=== PATIENT | male | born 1990 | race African-American/Black ===

== ENCOUNTER 2019-11-18 00:03 | Outpatient (CLI) | payer OTHER, SELFPAY ==
[2019-11-18 20:58] LABS: SARS-CoV-2 RNA PCR Negative
== END 2019-11-18 00:04 | disposition home or self-care (01) ==
LOC: ANHCOVIDDT 00:03
PROVIDERS: PCP Nurse Practitioner Adult Health; Visit Provider Internal Medicine Gastroenterology
DX: Z01.812 Encounter for preprocedural laboratory examination (principal); Z11.59 Encounter for screening for other viral diseases
CPT/HCPCS: 87635; C9803; U0003

== ENCOUNTER 2019-11-21 01:24 | Day surgery (SDC) | payer OTHER, SELFPAY ==
[2019-11-17 14:41] VITALS: BMI 34.4
--- NOTE | 2019-11-21 08:10 | P.PNAN_ITS ---
Anes - Initial Pre Proc Eval Procedure: Operation Date: 11/21/19 09:00 Proposed Procedures p Esophagogastroduodenoscopy - Milton Joshua MD Date/Time: 11/21/19 08:10 Surgeon: Milton Joshua MD Pre Op Diagnosis: Reflux Patient Data Age: 29 Gender: M Height: 1.91 m Weight: 125 kg Allergies Allergy/AdvReac Type Severity Reaction Status Date / Time No Known Allergies Allergy Verified 11/17/19 14:40 Home Medications Medication Instructions Recorded Confirmed Type omeprazole 40 mg PO DAILY 11/17/19 11/17/19 History Patient hx anesthesia problems: none Family hx anesthesia problems: none [facility] Past Medical History Medical History (Updated 11/21/19 @ 08:12 by Bebeto Mccarty MD) Gastroesophageal reflux disease Obesity Anes - Eval Final PreProcedure Day of Procedure 11/21/19 08:10 Patient weight: obese Heart: regular rate and rhythm Lungs: clear to auscultation and normal air movement Airway: Mallampati scale class II Neurological: alert and oriented Last oral intake: >/= 8 hours ASA classification: II Emergent: no Anesthetic plan: proceed Anesthesia type and monitoring: general GIVS Informed Consent: The patient's anesthetic plan and its attendant risks and benefits were discussed with the patient/family/POA. Questions were solicited and answers provided to the satisfaction of the patient/family/POA.
[2019-11-21 08:12] VITALS: BMI 34.4
[2019-11-21 08:13] VITALS: BP 145/94; PULSE 86; RESP 20; TEMP 36.9; O2SAT 100
[2019-11-21] MEDS: LACTATED RINGERS 1,000 ML 150 ML IV CONT (08:29)
--- NOTE | 2019-11-21 09:00 | P.HP_ITS ---
History of Present Illness History of Present Illness Consent: Risks, benefits, and alternatives have been discussed and questions answered. Patient agrees to proceed with procedure. Chief complaint: Reflux Narrative: Nikita Gtz is a 29 year old AA male Referred for EGD for evaluation of chronic gastroesophageal reflux disease with intermittent nausea occasional episode of vomiting. He denies any dysphagia odynophagia. He had been on Aleve on a regular basis this was stopped back in June. He did not schedule since this time because of COVID. Patient was given what I suspect is a PPI this was stopped in the symptoms reoccurred. He is on no medication at the present time COUNT INCLUDES THE [facility] Past Medical History Medical History Gastroesophageal reflux disease Obesity Meds Home Medications and Allergies Home Medications Medication Instructions Recorded Confirmed Type omeprazole 40 mg PO DAILY 11/17/19 11/17/19 History Allergies Allergy/AdvReac Type Severity Reaction Status Date / Time No Known Allergies Allergy Verified 11/17/19 14:40 Vital Signs Vital Signs - 24 hr 11/21/19 08:13 Temperature 36.9 C Pulse Rate 86 Respiratory Rate 20 Blood Pressure 145/94 H Pulse Oximetry 100 Exam Const: Orientation/consciousness: patient oriented x3 Resp: Auscultation: clear to auscultation bilaterally Cardio: Rate: regular rate Rhythm: regular rhythm Heart sounds: no murmurs GI: GI Palp: Yes Soft to palpation, No Tenderness to palpation present (GI), Yes No hepatosplenomegaly present and No Palpable mass present Auscultation: normal bowel sounds Neuro: General: patient oriented x3 and no focal motor deficits Extrem: General: no pedal edema Assessment and Plan Additional Plan gastroscopy for evaluation recurrent gastroesophageal reflux disease nausea occasional vomiting
[2019-11-21 09:48] VITALS: BP 122/77; PULSE 86; RESP 20; O2SAT 98
[2019-11-21 09:58] VITALS: BP 127/82; PULSE 81; RESP 20; O2SAT 98
[2019-11-21 10:01] LABS: Basophils Percent Auto 0.7 % (0.2-1.2); Eosinophils Percent Auto 0.7 % (0-4.4); Hematocrit 42.2 % (42.0-52.0); Hemoglobin 13.9 g/dL (14.0-18.0); Immature Granulocyte Absolute 0.01 K/mm3 (0.00-0.031); Immature Granulocyte Percent A 0.2 % (0-0.5); Lymphocytes Absolute Auto 1.84 K/mm3 (0.9-3.2); Mean Corpuscular HGB Conc 32.9 g/dl (32-36); Mean Corpuscular Hemoglobin 28.1 pg (26-34); Mean Corpuscular Volume 85.3 fl (80-100); Mean Platelet Volume 11.1 fl (7.4-10.4); Monocytes Absolute Auto 0.3 K/mm3 (0.1-0.6); Monocytes Percent Auto 7.5 % (2.6-8.5); Neutrophils Absolute Auto 2.1 K/mm3 (1.3-6.7); Neutrophils Percent Auto 47.9 % (45.5-73.1); Platelet Count Result 228 k/mm3 (150-375); Red Blood Count 4.95 M/mm3 (4.6-6.20); Red Cell Distribution Width 12.9 % (11.5-14.5); White Blood Count 4.3 K/mm3 (4.5-10.0)
[2019-11-21 10:08] VITALS: BP 118/76; PULSE 73; RESP 20; O2SAT 100
[2019-11-21 10:17] LABS: Alanine Aminotransferase 73 U/L (4-50); Albumin Level 4.1 g/dL (3.5-5.1); Alkaline Phosphatase 66 U/L (38-126); Aspartate Amino Transferase 32 U/L (17-59); Bilirubin,Total 0.4 mg/dL (0.2-1.3); Blood Urea Nitrogen 9 mg/dL (9-20); Calcium 8.8 mg/dL (8.4-10.2); Carbon Dioxide 24 mmol/L (22-30); Chloride 107 mmol/L (98-107); Cholesterol 157 mg/dL (0-200); Estimated CRCL calculation 151 ml/min; Estimated Glomerular Filt Rate > 60; Glucose 99 mg/dL (75-110); HDL Direct 27 mg/dL; Potassium 3.8 mmol/L (3.4-5.0); Sodium 138 mmol/L (137-145); Triglycerides 130 mg/dL (<150)
[2019-11-21 10:29] LABS: LDL Cholesterol Direct 115 mg/dL
== END 2019-11-21 10:25 | disposition home or self-care (01) ==
PROVIDERS: PCP Nurse Practitioner Adult Health; Visit Provider Internal Medicine Gastroenterology
PROC: 0DJ08ZZ Inspection of Upper Intestinal Tract, Via Natural or Artificial Opening Endoscopic (ICD-10-PCS; CPT 43235; principal; 2019-11-21 09:00)
DX: K21.0 Gastro-esophageal reflux disease with esophagitis (principal); K44.9 Diaphragmatic hernia without obstruction or gangrene; K29.50 Unspecified chronic gastritis without bleeding; E66.9 Obesity, unspecified; Z68.34 Body mass index [BMI] 34.0-34.9, adult
CPT/HCPCS: 43239; 36415; 80053; 80061; 82607; 83036; 84443; 85025; 87081; 88305; 88312; J2001; J2704; J7120

== ENCOUNTER 2020-11-20 22:17 | Emergency (ER) | payer SELFPAY ==
--- NOTE | ~2020-11-20 | XR_ITS ---
EXAMINATION: XR chest 1V portable EXAM DATE: 11/20/2020 22:30 INDICATION: Chest pressure progressing since 3 o'clock. TECHNIQUE: Portable AP frontal chest x-ray was obtained. There is no prior study for comparison. FINDINGS: The lungs are clear. There are no pleural effusions. The cardiomediastinal silhouette is within normal limits. There is no pneumothorax suspected. The bones and soft tissues are unremarkab le. IMPRESSION: Unremarkable chest x-ray exam. Reviewed, dictated and finalized at location A.
[2020-11-20 22:09] VITALS: BP 153/91; PULSE 76; RESP 20; O2SAT 100
--- NOTE | 2020-11-20 22:11 | PC.NURSE ---
i had to cold call each dr to let them know we have a stemi coming in. Ever ant was not working correctly at the time. ever ant is now up and going.
--- NOTE | 2020-11-20 22:17 | ECG_ITS ---
Measurements Intervals [place] Rate: 80 P: 41 GA: 143 QRS: 66 QRSD: 95 T: -49 QT: 334 QTc: 386 Interpretive Statements SINUS RHYTHM POSSIBLE LEFT ATRIAL ENLARGEMENT ST-T WAVE ABNORMALITY IN INFERIOR LEADS- CONSIDER ISCHEMIA BASELINE ARTIFACT- V1, V4 ABNORMAL ECG Electronically Signed On 11-21-2020 6:13:25 CDT by Jerome Payton D.O.
--- NOTE | 2020-11-20 22:18 | PC.NURSE ---
stemi was cancelled per Dr. Moise
--- NOTE | 2020-11-20 22:22 | ED.CHESTPAIN ---
HPI - Chest Pain General Chief Complaint: Chest Pain Stated Complaint: CP Time Seen by Provider: 11/20/20 22:20 Source: patient Mode of arrival: ambulatory Limitations: no limitations History of Present Illness HPI narrative: Patient is a 30-year-old male complaining of chest pain midsternal, pressure, 8 out of 10, now resolved after he was given nitro by EMS, worse with movement, started today while at work. Patient denies any shortness of breath, abdominal pain, nausea, vomiting, diaphoresis, fever or chills. Related Data Home Medications Medication Instructions Recorded Confirmed omeprazole 40 mg PO DAILY 11/17/19 11/17/19 No Home Medications 11/20/20 11/20/20 Allergies Allergy/AdvReac Type Severity Reaction Status Date / Time No Known Allergies Allergy Unverified 11/20/20 22:15 Review of Systems Review of Systems: All systems reviewed & are unremarkable except as noted in HPI and below Constitutional: Constitutional: Denies body ache(s), Denies chills, Denies excessive sweating, Denies fatigue, Denies fever(s), Denies headache(s), Denies lethargy, Denies malaise, Denies weakness and Denies weight loss Eyes: Eyes: Denies blurry vision, Denies change in vision and Denies loss of vision ENT: Denies dizziness, Denies ear discharge, Denies headache(s), Denies lip swelling, Denies epistaxis, Denies nasal congestion, Denies neck pain, Denies throat swelling and Denies tongue swelling Cardiovascular: Cardiovascular: Denies diaphoresis, Denies rapid heart rate, Denies edema, Denies irregular heart rhythm, Denies lightheadedness, Denies palpitations, Denies dyspnea and Denies dyspnea on exertion Respiratory: Respiratory: Denies chest congestion, Denies cough, Denies hemoptysis, Denies dyspnea and Denies dyspnea on exertion Gastrointestinal: Gastrointestinal: Denies abdominal pain, Denies melena, Denies hematochezia, Denies diarrhea, Denies nausea, Denies vomiting and Denies hematemesis Musculoskeletal: Musculoskeletal: Denies abnormal gait, Denies deformity, Denies joint swelling, Denies limited range of motion, Denies neck pain and Denies numbness Neurologic: Denies Abnormal speech present, Denies abnormal gait, Denies confusion, Denies dizziness, Denies headache(s), Denies focal weakness, Denies loss of vision, Denies numbness, Denies Other visual disturbances, Denies Sensory deficit (Neuro) and Denies weakness Psychiatric: Psychiatric: Denies confusion, Denies depression, Denies auditory hallucinations, Denies homicidal ideation and Denies suicidal ideation Endocrine: Endocrine: Denies cold intolerance, Denies excessive sweating, Denies fatigue, Denies heat intolerance and Denies palpitations Hematologic/Lymphatic: Hematologic/Lymphatic: Denies easy bleeding and Denies easy bruising Allergic/Immunologic: Allergic/Immunologic: Denies lip swelling, Denies throat swelling and Denies tongue swelling PMFSH Past Medical History Medical History (Updated 11/21/20 @ 00:13 by James Sawyer MD) Gastroesophageal reflux disease Obesity Comments Past medical history: None Family history: Negative for [place], but states that his mother had heart problems but not heart attack Social history: Non-smoker no EtOH or drug use Exam Const: General: cooperative, healthy appearing, comfortable, no acute distress, well developed, alert and awake; No confusion Orientation/consciousness: oriented to person, oriented to place, oriented to time, patient oriented x3 and No confusion Limitations: no limitations HENMT: Head: normal to inspection, normocephalic and atraumatic Ears: hearing grossly normal bilaterally, TM normal on the right and TM normal on the left General nose exam: Normal external nose present, Normal nares present and No nasal discharge present Face and sinus: normal facial exam Mouth: Yes Normal oral and palatal mucosa present, Yes lip normal, Yes tongue normal and Yes oropharynx normal Throat: posterior oropharynx nor
[2020-11-20 22:33] LABS: Basophils Percent Auto 0.3 % (0.2-1.2); Eosinophils Absolute Auto 0.1 K/mm3 (0-0.3); Hematocrit 48.8 % (42.0-52.0); Hemoglobin 15.7 g/dL (14.0-18.0); Immature Granulocyte Absolute 0.02 K/mm3 (0.00-0.031); Immature Granulocyte Percent A 0.3 % (0-0.5); Lymphocytes Absolute Auto 2.29 K/mm3 (0.9-3.2); Mean Corpuscular HGB Conc 32.2 g/dl (32-36); Monocytes Absolute Auto 0.4 K/mm3 (0.1-0.6); Monocytes Percent Auto 7.5 % (2.6-8.5); Neutrophils Percent Auto 51.9 % (45.5-73.1); Platelet Count Result 267 k/mm3 (150-375); Red Blood Count 5.61 M/mm3 (4.6-6.20); White Blood Count 5.9 K/mm3 (4.5-10.0)
[2020-11-20 22:37] LABS: Alanine Aminotransferase 59 U/L (4-50); Albumin Level 4.7 g/dL (3.5-5.1); Alkaline Phosphatase 79 U/L (38-126); Anion Gap 11 mmol/L (8-16); Aspartate Amino Transferase 40 U/L (17-59); Bilirubin,Total 0.5 mg/dL (0.2-1.3); Blood Urea Nitrogen 8 mg/dL (9-20); Carbon Dioxide 26 mmol/L (22-30); Chloride 107 mmol/L (98-107); Cholesterol 164 mg/dL (0-200); Estimated CRCL calculation 123 ml/min; Estimated Glomerular Filt Rate > 60; Glucose 99 mg/dL (75-110); HDL Direct 33 mg/dL; INR 0.9; Partial Thromboplastin Time 29.3 SECONDS (22.3-36.8); Potassium 3.5 mmol/L (3.4-5.0); Prothrombin Time 12.9 Seconds (11.1-14.7); Sodium 144 mmol/L (137-145); Triglycerides 79 mg/dL (<150)
[2020-11-20 22:48] LABS: LDL Cholesterol Direct 99 mg/dL
[2020-11-20 22:51] LABS: Troponin I < 0.012 ng/mL (0.000-0.034)
[2020-11-20 22:54] VITALS: PULSE 80
--- NOTE | 2020-11-20 23:22 | PC.NURSE ---
Assumed care of pt at this time. Pt resting comfortably on stretcher, A&Ox4, rates chest pain/pressure 0/10.
--- NOTE | 2020-11-20 23:32 | PC.NURSE ---
Pt states I want to get out of here. I dont have insurance. Gilma never been the type to go to the hospital. EDP notified at this time.
--- NOTE | 2020-11-20 23:35 | PC.NURSE ---
Pt states I want to go home, I dont have insurance. Gilma never been the type to go to the hospital. EDP notified at this time.
--- NOTE | 2020-11-20 23:56 | PC.NURSE ---
Initial contact with patient. Pt denies chest pain or sob. States he spoke with Dr. Sawyer and is wanting to leave AMA. Risks explained to include heart attack, , and possible disablity. Pt verb understanding. States I don't have the money to afford to be in the hospital right now . Pt signs AMA form. IV's x2 removed.
[2020-11-20 23:59] VITALS: BP 139/86; PULSE 76; RESP 18; O2SAT 100
== END 2020-11-21 00:01 | disposition left against medical advice (07) ==
LOC: ANHED 22:38
PROVIDERS: Emergency Provider Emergency Medicine
DX: R07.2 Precordial pain (principal); K21.9 Gastro-esophageal reflux disease without esophagitis; E66.9 Obesity, unspecified; Z68.33 Body mass index [BMI] 33.0-33.9, adult; R94.31 Abnormal electrocardiogram [ECG] [EKG]
CPT/HCPCS: 36415; 71045; 80053; 80061; 84484; 85025; 85610; 85730; 86850; 86900; 86901; 93005; 99284; J7030

== ENCOUNTER 2022-10-17 10:35 | Outpatient (CLI) | payer OTHER, SELFPAY ==
[2022-10-17 11:35] LABS: Basophils Percent Auto 0.6 % (0.2-1.2); Eosinophils Absolute Auto 0.1 K/mm3 (0-0.3); Hematocrit 45.4 % (42.0-52.0); Hemoglobin 14.8 g/dL (14.0-18.0); Immature Granulocyte Absolute 0.01 K/mm3 (0.00-0.031); Immature Granulocyte Percent A 0.2 % (0-0.5); Lymphocytes Absolute Auto 2.18 K/mm3 (0.9-3.2); Lymphocytes Percent Auto 43.8 % (18.3-44.2); Mean Corpuscular HGB Conc 32.6 g/dl (32-36); Mean Corpuscular Hemoglobin 27.5 pg (26-34); Mean Corpuscular Volume 84.4 fl (80-100); Mean Platelet Volume 10.9 fl (7.4-10.4); Monocytes Absolute Auto 0.3 K/mm3 (0.1-0.6); Monocytes Percent Auto 6.8 % (2.6-8.5); Neutrophils Absolute Auto 2.4 K/mm3 (1.3-6.7); Neutrophils Percent Auto 47.6 % (45.5-73.1); Platelet Count Result 302 k/mm3 (150-375); Red Blood Count 5.38 M/mm3 (4.6-6.20)
[2022-10-17 19:16] LABS: Alanine Aminotransferase 60 U/L (6-50); Albumin Level 4.6 g/dL (3.5-5.1); Alkaline Phosphatase 71 U/L (38-126); Anion Gap 6 mmol/L (8-16); Aspartate Amino Transferase 32 U/L (17-59); Bilirubin,Total 0.5 mg/dL (0.2-1.3); Blood Urea Nitrogen 11 mg/dL (9-20); Calcium 8.9 mg/dL (8.4-10.2); Carbon Dioxide 28 mmol/L (22-30); Chloride 106 mmol/L (98-107); Cholesterol 173 mg/dL (0-200); Estimated Glomerular Filt Rate > 60; Glucose 87 mg/dL (65-110); HDL Direct 29 mg/dL; Sodium 140 mmol/L (137-145); Triglycerides 93 mg/dL (<150)
[2022-10-17 19:27] LABS: LDL Cholesterol Direct 125 mg/dL
== END 2022-10-17 10:36 | disposition home or self-care (01) ==
LOC: ANHGOSHLAB 10:36
PROVIDERS: PCP Internal Medicine; Visit Provider Nurse Practitioner
DX: Z13.29 Encounter for screening for other suspected endocrine disorder (principal); Z13.220 Encounter for screening for lipoid disorders
CPT/HCPCS: 36415; 80053; 80061; 85025

== ENCOUNTER 2025-03-03 23:38 | Observation (INO) | payer SELFPAY ==
--- NOTE | ~2025-03-03 | XR_ITS ---
Examination: XR chest 1V Clinical History: AMS Comparison: 11/20/2020 Technique: Portable AP Findings: Heart size upper limit of normal. Lungs clear. No acute bony abnormality. IMPRESSION: 1. No acute cardiopulmonary findings given portable technique. Reviewed, dictated and finalized at location R.
--- NOTE | ~2025-03-03 | CT_ITS ---
CT HEAD NON-CONTRAST Clinical History: AMS Comparison: None Technique: Unenhanced axial images skull base to vertex Coronal, sagittal reformats CT images acquired with automatic exposure control for dose reduction DLP: 681 mGy-cm Findings: Sulci, ventricles: Unremarkable. No intracerebral hemorrhage. No evidence acute territorial infarct. No mass effect, midline shift. Bony calvarium intact. Visualized paranasal sinuses: Right maxillary retention cysts. Mastoid air cells: Clear. IMPRESSION: 1. No acute intracranial findings. Reviewed, dictated and finalized at location R.
[2025-03-03 23:45] VITALS: PULSE 86; O2SAT 97
[2025-03-03 23:47] VITALS: BP 111/62; PULSE 88; RESP 22; TEMP 36.7; O2SAT 96
[2025-03-04] VITALS (33 sets, daily range): BP systolic 113–140; BP diastolic 64–87; PULSE 78–105; RESP 12–24; TEMP 36.3–37.1; O2SAT 94–100; BMI 33.7
--- NOTE | 2025-03-04 00:45 | ECG_ITS ---
Test Date: 2025-03-04 02:58:05 Measurements Intervals [place] Rate: 86 P: 68 LA: 168 QRS: 73 QRSD: 97 T: -4 QT: 320 QTc: 384 Interpretive Statements SINUS RHYTHM POSSIBLE RIGHT VENTRICULAR CONDUCTION DELAY MINIMAL Q WAVES- INFERIOR LEADS NONSPECIFIC ST & T-WAVE ABNORMALITY- INF/LAT LEADS BORDERLINE ECG No previous ECG available for comparison Electronically Signed On 03-04-2025 08:53:46 CDT by Jerome Payton D.O.
--- NOTE | 2025-03-04 00:47 | ED.AMS ---
HPI - Altered Mental Status General Chief Complaint: Altered Mental Status Stated Complaint: acting bizzare Time Seen by Provider: 03/04/25 00:19 Source: family Mode of arrival: EMS Limitations: altered mental status History of Present Illness HPI narrative: History obtained from present at bedside as patient is not providing any verbal responses. Patient reportedly ingested a gummy any obtained from the street around 8:00 p.m. anuradha, wound got home initially he was talking and any started fact very bizarre running up and down the street. Patient was reportedly in his normal state health before all this. Patient vomiting in the emergency department. No recent fevers or illness. No reported trauma. Related Data Allergies Allergy/AdvReac Type Severity Reaction Status Date / Time No Known Allergies Allergy Verified 10/17/22 09:32 Review of Systems Review of Systems: ROS unobtainable: Yes unobtainable due to mental status PMFSH Past Medical History Medical History (Updated 03/04/25 @ 06:32 by Jonathan Ferrell DO) Obesity Gastroesophageal reflux disease Surgical History Surgical History (Updated 10/17/22 @ 09:36 by Miranda Edgar CMA) H/O esophagogastroduodenoscopy Family History Family History (Updated 10/17/22 @ 09:42 by Miranda Edgar CMA) Other Cancer Diabetes mellitus Other Cancer Hypertension Diabetes mellitus Mother Heart disease heart valve [place] Cancer Sibling Heart disease heart murmur at Social History Social History (Updated 10/17/22 @ 09:52 by Miranda Edgar CMA) Smoking status: Former smoker Tobacco type: cigarettes Additional smoking assessment comments: on and off from to Alcohol intake: unknown Substance use type: does not use Lack of Transportation: No Lack of Food: Sometimes True Current Housing: I Do Not Have Housing Concerned About Future Housing: No Difficulty Paying Gas/Electric Bills: No Difficulty Paying for Meds: No Currently Unemployed: No Education: High School Diploma/GED Difficulty w/ Childcare or Family Care: No Exam Narrative: CONST: Vomiting in the room, emesis is nonbloody and nonbilious. HENMT: Head is normocephalic and atraumatic. Tacky mucous membranes. EYES: No scleral icterus. No conjunctival injection or pallor. PERRL. Pupils are 3-4 mm bilaterally equal round and reactive to light. NECK: No meningeal signs. RESP: Normal respiratory effort. CTAB. CARDIO: Regular rate. Regular rhythm. 2+ DP and radial pulses bilaterally. GI: Nondistended. No tenderness to palpation. Soft. : No CVA tenderness to palpation. SKIN: Skin is diaphoretic. NEURO: Moves all extremities. Not providing any verbal responses to questioning. Eyes are open, no gaze deviation. Not following any basic commands. Withdraws to noxious stimuli in all 4 extremities. EXTREM/MSK/BACK: No pedal edema. Course Vital Signs Vital signs: Vital Signs Pulse Rate 86 03/03/25 23:45 Pulse Oximetry 97 03/03/25 23:45 Temperature 98.0 F 03/03/25 23:47 Pulse Rate 87 03/04/25 04:49 Respiratory Rate 21 H 03/04/25 04:49 Blood Pressure 116/64 03/04/25 04:16 Pulse Oximetry 95 03/04/25 02:06 Oxygen Delivery Room Air 03/03/25 23:47 MDM - Altered Mental Status MDM Narrative Medical decision making narrative: Patient presents with the above complaint. Initial vitals are remarkable for no significant abnormalities. Physical examination as noted above. Differential diagnosis includes was not limited to: Metabolic derangement, thyroid dysfunction, intracranial hemorrhage, substance abuse, withdrawal, UTI, gastritis, dysrhythmia, overdose, hypercapnia, TIA/stroke, infection, toxic/metabolic, hypoxia. No trauma on examination. Patient is afebrile, heart rate is less than 90. No focal neuro findings on exam. Will obtain a point of care glucose. No signs of ESRD/dialysis dependence. No known history of recent medication changes. Patient has not noted be a chronic steroids. Plan discussed: Laboratory analysis, chest x-ray, CT head, continues cardiac monitoring, continuous pulse oximetry, naloxone, Zofran, IV fluids. On reassessment patient is no longer vomiting, eyes open spontaneously, following basic commands, identifies his in the room, no focal neurological deficits. CT of the head reveals no acute intracranial abnormality. EKG reveals a rate of 86, rhythm is sinus rhythm, axis is normal, he nonspecific ST T-wave abnormality, possible right ventricular conduction delay, no old EKG available for comparison. CBC reveals a white blood cell count of 15.8. Coags are grossly within normal limits. VBG reveals a pCO2 of 50.3, pH 7.307. Comprehensive metabolic panel reveals a glucose of 136. Total creatine kinase is 388. Troponin is less than 0.012. TSH is 0.145 with a free T4 of 0.94 and total T3 of 1.29. Lipase is 174. Magnesium is 1.9. Lactic acid 2.9. Salicylates were less than 1.0. Acetaminophen levels less than 10. Ethyl alcohol is less than 10. Urinalysis is without any significant abnormalities. UDS is positive for cannabinoids. Patient is still confused sane that he is 33 years old, please it is 2020. Discussed plan for a period of observation. I spoke with the hospitalist on-call who has accepted the patient for admission. Lab Data 03/04/25 01:36 03/04/25 01:36 Labs: Lab Results 03/04/25 03/04/25 Range/Units 01:36 04:51 WBC 15.8 H (4.5-10.0) K/mm3 RBC 5.29 (4.6-6.20) M/mm3 Hgb 14.8 (14.0-18.0) g/dL Hct 45.1 (42.0-52.0) % MCV 85.3 (80-100) fl MCH 28.0 (26-34) pg MCHC 32.8 (32-36) g/dl RDW 13.0 (11.5-14.5) % Plt Count 296 (150-375) k/mm3 MPV 10.7 H (7.4-10.4) fl Immature Gran % (Auto) 0.7 H (0-0.5) % Neut % (Auto) 86.8 H (45.5-73.1) % Lymph % (Auto) 6.9 L (18.3-44.2) % [place] % (Auto) 5.4 (2.6-8.5) % Eos % (Auto) 0.0 (0-4.4) % Baso % (Auto) 0.2 (0.2-1.2) % Lymph # (Auto) 1.09 (0.9-3.2) K/mm3 [place] # (Auto) 0.9 H (0.1-0.6) K/mm3 Eos # (Auto) 0.0 (0-0.3) K/mm3 Baso # (Auto) 0.0 (0.0-0.1) K/mm3 Abs Immat Gran (auto) 0.11 H (0.00-0.031) K/mm3 Absolute Neuts (auto) 13.8 H (1.3-6.7) K/mm3 Absolute Nucleated RBC 0.000 (0.0-0.012) K/mm3 Nucleated RBC % 0.0 (0.0-0.2) % PT 13.6 (11.1-14.7) Seconds INR 1.0 APTT 25.0 (22.3-36.8) Seconds Sodium 141 (137-145) mmol/L Potassium 4.1 (3.4-5.0) mmol/L Chloride 106 (98-107) mmol/L Carbon Dioxide 24 (22-30) mmol/L Anion Gap 11 (4-12) mmol/L BUN 14 (9-20) mg/dL Creatinine 1.14 (0.7-1.3) mg/dL Estim Creat Clear Calc 111 ml/min Estimated GFR > 60 (59 - ) Glucose 136 H (65-110) mg/dL Lactic Acid 2.9 H (0.7-2.0) mmol/L Calcium 9.3 (8.4-10.2) mg/dL Magnesium 1.9 (1.6-2.3) mg/dL Total Bilirubin 0.5 (0.2-1.3) mg/dL AST 36 (17-59) U/L ALT 47 (6-50) U/L Alkaline Phosphatase 79 (38-126) U/L Total Creatine Kinase 388 H (55-170) U/L Troponin I < 0.012 (0.000-0.034) ng/mL Total Protein 8.3 H (6.3-8.2) g/dL Albumin 4.5 (3.5-5.1) g/dL Lipase 174 (23-300) U/L TSH Cancelled TSH (Reflex) 0.145 L (0.465-4.68) uIU/mL Free T4 0.94 (0.78-2.19) ng/dL Total T3 1.29 (0.82-1.58) NG/ML Urine Color Yellow (Yellow) Urine Appearance Clear (Clear) Urine pH 6.0 (5.0-9.0) Ur Specific [place] 1.020 (1.001-1.035) Urine Protein Negative (Negative) mg/dL Urine Glucose (UA) Negative (Negative) mg/dL Urine Ketones Negative (Negative) mg/dL Ur Blood (Man) Negative (Negative) Urine Nitrate Negative (Negative) Urine Bilirubin Negative (Negative) Urine Urobilinogen 1.0 (<2.0) mg/dL Leukocyte Esterase Rfl Negative (Negative) KIARA/UL Salicylates < 1.0 L (2-20) mg/dL Urine Opiates Screen Negative (Negative) Urine Methadone Screen Negative (Negative) Acetaminophen < 10 L (10-30) ug/mL Ur Barbiturates Screen Negative (Negative) Ur Phencyclidine Scrn Negative (Negative) Ur Amphetamine Screen Negative (Negative) U Benzodiazepines Scrn Negative (Negative) Urine Cocaine Screen Negative (Negative) U Cannabinoids Screen Positive A (Negative) Ethyl Alcohol < 10 (<10) mg/dL ABG Data ABG results: 03/04/25 01:36 VBG pH 7.307 VBG pCO2 50.3 H VBG pO2 37.9 VBG HCO3 24.6 O2 Delivery Device Not Reportable O2 Liters/Min Not Reportable FiO2 21 Discharge Plan Discharge Patient Disposition: Still a Patient Patient Language: Bengali Prescriptions: No Action pantoprazole 20 mg tablet,delayed release (DR/EC) 20 mg PO QAM Qty: 90 0RF Follow-up/Referrals: Renan Raymond DO [Primary Care Provider, Internal Medicine] Time of Disposition: 06:32
[2025-03-04] MEDS: ONDANSETRON INJ 4 MG/2 ML VIAL 8 MG IV PUSH (01:43)
[2025-03-04] MEDS: NALOXONE HCL 0.4 MG/ML VIAL IV PUSH (01:44)
[2025-03-04] MEDS: SODIUM CHLORIDE 0.9% IV 2,000 ML 999 ML IV CONT (01:45)
[2025-03-04 01:47] LABS: Fractional Inspired Oxygen 21 %; HCO3 VBG 24.6 mEq/l (24.0-30.0); PCO2 VBG 50.3 mmHg (42.0-48.0); PO2 VBG 37.9 mmHg (35.0-45.0); pH VBG 7.307 (7.300-7.400)
[2025-03-04 01:49] LABS: Hematocrit 45.1 % (42.0-52.0); Hemoglobin 14.8 g/dL (14.0-18.0); Immature Granulocyte Percent A 0.7 % (0-0.5); Lymphocytes Absolute Auto 1.09 K/mm3 (0.9-3.2); Mean Corpuscular HGB Conc 32.8 g/dl (32-36); Mean Corpuscular Hemoglobin 28.0 pg (26-34); Mean Corpuscular Volume 85.3 fl (80-100); Nucleated Red Blood Cells Absolute Auto 0.000 K/mm3 (0.0-0.012); Nucleated Red Blood Cells Perc 0.0 % (0.0-0.2); Platelet Count Result 296 k/mm3 (150-375); Red Blood Count 5.29 M/mm3 (4.6-6.20); White Blood Count 15.8 K/mm3 (4.5-10.0)
[2025-03-04 02:01] LABS: Acetaminophen < 10 ug/mL (10-30); Salicylate < 1.0 mg/dL (2-20)
[2025-03-04 02:03] LABS: Alanine Aminotransferase 47 U/L (6-50); Albumin Level 4.5 g/dL (3.5-5.1); Alkaline Phosphatase 79 U/L (38-126); Anion Gap 11 mmol/L (4-12); Aspartate Amino Transferase 36 U/L (17-59); Bilirubin,Total 0.5 mg/dL (0.2-1.3); Blood Urea Nitrogen 14 mg/dL (9-20); Calcium 9.3 mg/dL (8.4-10.2); Carbon Dioxide 24 mmol/L (22-30); Chloride 106 mmol/L (98-107); Creatine Kinase 388 U/L (55-170); Estimated CRCL calculation 111 ml/min; Estimated Glomerular Filt Rate > 60; Glucose 136 mg/dL (65-110); Lipase 174 U/L (23-300); Magnesium 1.9 mg/dL (1.6-2.3); Potassium 4.1 mmol/L (3.4-5.0); Sodium 141 mmol/L (137-145); Total Protein 8.3 g/dL (6.3-8.2)
[2025-03-04] MEDS: IPRATROPIUM 0.5 MG/ALBUTEROL SULFATE 2.5 MG (BASE) AMPUL.NEB 3 ML INHALATION (02:08)
[2025-03-04 02:14] LABS: Troponin I < 0.012 ng/mL (0.000-0.034)
[2025-03-04 02:24] LABS: INR 1.0; Prothrombin Time 13.6 Seconds (11.1-14.7)
[2025-03-04 02:29] LABS: Thyroid Stimulating Hormone Reflex 0.145 uIU/mL (0.465-4.68)
[2025-03-04 03:03] LABS: Free T4 Free Thyroxine Reflex 0.94 ng/dL (0.78-2.19)
[2025-03-04 03:21] LABS: Partial Thromboplastin Time 25.0 Seconds (22.3-36.8)
[2025-03-04 03:47] LABS: Total Triiodothyronine (T3) 1.29 NG/ML (0.82-1.58)
[2025-03-04 04:57] LABS: Add Urine Microscopic? NO; Appearance Urine Clear (Clear); Glucose Urine UA Negative (Negative); Leukocyte Esterase Ur Negative LEU/UL (Negative); Nitrate Urine Negative (Negative); Specific Grav Ur 1.020 (1.001-1.035)
[2025-03-04 05:17] LABS: Cannabinoid Screen Urine Positive (Negative)
[2025-03-04] MEDS: SODIUM CHLORIDE 0.9% IV 1,000 ML 999 ML IV CONT (06:43)
[2025-03-04] MEDS: ONDANSETRON INJ 4 MG/2 ML VIAL IV PUSH (06:44)
--- NOTE | 2025-03-04 08:53 | ADMGEN ---
This patient, Nikita Gtz, was admitted to [facility] Surg Room 307-02. Patient/family oriented to hospital policies and general routines including ID bracelet, bed and alarms, visiting hours, pain management, procedures, bathroom and other care routines, personal items, smoking policy, room service/diet, and visiting hours. Information on how to activate the Rapid Response Team has been discussed. Patient/Family are encouraged to report perceived risks to care and to ask questions if they do not understand what they are told or what they should do.
[2025-03-04 09:19] LABS: Anion Gap 8 mmol/L (4-12); Blood Urea Nitrogen 11 mg/dL (9-20); Calcium 8.0 mg/dL (8.4-10.2); Carbon Dioxide 24 mmol/L (22-30); Chloride 105 mmol/L (98-107); Estimated CRCL calculation 158 ml/min; Estimated Glomerular Filt Rate > 60; Glucose 107 mg/dL (65-110); Potassium 4.2 mmol/L (3.4-5.0); Sodium 137 mmol/L (137-145)
--- NOTE | 2025-03-04 11:01 | ADMGEN ---
This patient, Nikita Gtz, was admitted to [facility] Surg Room 307-02. Patient/family oriented to hospital policies and general routines including ID bracelet, bed and alarms, visiting hours, pain management, procedures, bathroom and other care routines, personal items, smoking policy, room service/diet, and visiting hours. Information on how to activate the Rapid Response Team has been discussed. Patient/Family are encouraged to report perceived risks to care and to ask questions if they do not understand what they are told or what they should do. received report from Cat.
[2025-03-04] MEDS: SODIUM CHLORIDE 0.9% IV 1,000 ML 125 ML IV CONT ×2 (11:23→19:37)
--- NOTE | 2025-03-04 11:33 | PM.IMHP ---
H&P: HPI History of Present Illness Date/Time: 03/04/25 11:33 Chief Complaint: ams Narrative: 34 y.o male with PMH/o GERD, obesity admitted for AMS, acting bizzar. Patient reportedly ingested a gummy obtained from the street around 8:00 p.m. last night, 03/03. He typially uses gummies, denies any other drug use. Of note, he was seen per PCP on 10/17/22 for gerd and gastritis and chest pain. He had a prior EGD and was diagnosed with gastritis and started on Pantoprazole. The medication really helped but he ran out and never got it refill. EKG was done (unchanged from 2020), stress echo was going to be ordered. He was staretd on 40 mg daily x 4 weeks, then 20 mg daily after. Former smoker, on/off from age [age]. denies alcohol use. NO chest pain, no sob. Pt reports feeling tired and sleepy. Able to carry conversation, on ra. IV is infusing. head CT: IMPRESSION: 1. No acute intracranial findings. Chest xray: IMPRESSION: 1. No acute cardiopulmonary findings given portable technique. Labs: wbc 15.8, chemistry normal. Lactic acid initially elevated-2.9, normal now- 1.4. CK 388. TSH 0.145. UDS- positive for cannabinoids. UA ok otherwise. Review of Systems Review of Systems: All systems reviewed & are unremarkable except as noted in HPI and below PMFSH Past Medical History Medical History Obesity Gastroesophageal reflux disease Surgical History Surgical History H/O esophagogastroduodenoscopy Family History Family History Other Cancer Diabetes mellitus Other Cancer Hypertension Diabetes mellitus Mother Heart disease heart valve stensois Cancer Sibling Heart disease heart murmur at Social History Social History Smoking status: Never smoker Tobacco type: cigarettes Additional smoking assessment comments: on and off from 19 to 31 Alcohol intake: never Substance use: never Substance use type: does not use Lack of Transportation: No Lack of Food: Never True Current Housing: I Have Housing Concerned About Future Housing: No Difficulty Paying Gas/Electric Bills: No Difficulty Paying for Meds: YES Currently Unemployed: No Education: High School Diploma/GED Difficulty w/ Childcare or Family Care: No Spiritual care concerns: No Meds Home Medications and Allergies Home Medications ?Medication ?Instructions ?Recorded ?Confirmed ?Type No Home Medications 03/04/25 03/04/25 History Allergies Allergy/AdvReac Type Severity Reaction Status Date / Time No Known Allergies Allergy Verified 03/04/25 11:09 Vital Signs Vital Signs - 24 hr 03/03/25 23:45 03/03/25 23:47 03/03/25 23:47 Temperature 98.0 F Pulse Rate 86 88 Respiratory Rate 22 H Blood Pressure 111/62 Pulse Oximetry 97 96 96 Oxygen Delivery Room Air Room Air 03/04/25 00:21 03/04/25 00:30 03/04/25 00:31 Temperature Pulse Rate 105 H 88 93 Respiratory Rate 22 H 20 24 H Blood Pressure 120/68 Pulse Oximetry 94 100 Oxygen Delivery 03/04/25 00:45 03/04/25 00:46 03/04/25 01:01 Temperature Pulse Rate 91 87 84 Respiratory Rate 23 H 20 19 Blood Pressure 140/87 133/85 Pulse Oximetry 100 97 Oxygen Delivery 03/04/25 01:02 03/04/25 01:15 03/04/25 01:34 Temperature Pulse Rate 83 Respiratory Rate 16 Blood Pressure Pulse Oximetry 100 100 97 Oxygen Delivery 03/04/25 01:45 03/04/25 02:06 03/04/25 02:08 Temperature Pulse Rate 85 Respiratory Rate 16 Blood Pressure Pulse Oximetry 97 95 Oxygen Delivery 03/04/25 03:24 03/04/25 03:34 03/04/25 03:45 Temperature Pulse Rate 86 86 83 Respiratory Rate 14 12 20 Blood Pressure Pulse Oximetry Oxygen Delivery 03/04/25 03:46 03/04/25 04:00 03/04/25 04:02 Temperature Pulse Rate 79 89 Respiratory Rate 18 Blood Pressure 133/70 116/71 Pulse Oximetry Oxygen Delivery 03/04/25 04:16 03/04/25 04:49 03/04/25 07:26 Temperature Pulse Rate 87 86 Respiratory Rate 21 H 17 Blood Pressure 116/64 113/74 Pulse Oximetry 99 Oxygen Delivery 03/04/25 07:31 03/04/25 07:45 03/04/25 07:46 Temperature Pulse Rate 90 92 89 Respiratory Rate 16 16 21 H Blood Pressure 118/67 124/73 Pulse Oximetry 99 98 98 Oxygen Delivery 03/04/25 09:47 03/04/25 09:52 03/04/25 10:21 Temperature 97.4 F L Pulse Rate 85 Respiratory Rate 18 Blood Pressure 130/67 Pulse Oximetry 96 97 Oxygen Delivery Room Air Room Air Exam Narrative: drowsy but easily wakes up and bale to carry conversation. Const: General: comfortable Neck: Thyroid: thyroid normal Resp: Effort & Inspection: normal respiratory effort Auscultation: clear to auscultation bilaterally Cardio: Rate: regular rate Rhythm: regular rhythm GI: GI Palp: Yes Soft to palpation Auscultation: normal bowel sounds Skin: General skin exam: normal color Extrem: General: normal to inspection Psych: Affect: normal affect H&P: Results Labs Labs: Short CBC 03/04/25 Range/Units 01:36 WBC 15.8 H (4.5-10.0) K/mm3 Hgb 14.8 (14.0-18.0) g/dL Hct 45.1 (42.0-52.0) % Plt Count 296 (150-375) k/mm3 [facility] 03/04/25 03/04/25 01:36 08:57 Sodium 141 137 Potassium 4.1 4.2 Chloride 106 105 Carbon Dioxide 24 24 BUN 14 11 Creatinine 1.14 0.78 Glucose 136 H 107 Calcium 9.3 8.0 L Cardiac Enzymes 03/04/25 Range/Units 01:36 Total Creatine Kinase 388 H (55-170) U/L Troponin I < 0.012 (0.000-0.034) ng/mL Liver Function 03/04/25 Range/Units 01:36 Total Bilirubin 0.5 (0.2-1.3) mg/dL AST 36 (17-59) U/L ALT 47 (6-50) U/L Alkaline Phosphatase 79 (38-126) U/L Albumin 4.5 (3.5-5.1) g/dL Urine 03/04/25 Range/Units 04:51 Urine Color Yellow (Yellow) Urine Appearance Clear (Clear) Urine pH 6.0 (5.0-9.0) Ur Specific [place] 1.020 (1.001-1.035) Urine Protein Negative (Negative) mg/dL Urine Glucose (UA) Negative (Negative) mg/dL Assessment and Plan Assessment and plan (1) Substance abuse: Code(s): F19.10 - Other psychoactive substance abuse, uncomplicated Status: Acute (2) Obesity: Qualifiers: Obesity type: due to excess calories Obesity classification: adult class 1 (BMI 30 - 34.9) Serious obesity comorbidity presence: without serious comorbidity Body mass index: BMI 34.0-34.9 Qualified Code(s): E66.09 - Other obesity due to excess calories; Z68.34 - Body mass index [BMI] 34.0-34.9, adult Code(s): E66.9 - Obesity, unspecified Status: Acute (3) Gastroesophageal reflux disease: Qualifiers: Esophagitis presence: with esophagitis Esophagitis bleeding: without hemorrhage Qualified Code(s): K21.00 - Gastro-esophageal reflux disease with esophagitis, without bleeding Code(s): K21.9 - Gastro-esophageal reflux disease without esophagitis Status: Acute (4) Altered mental status: Qualifiers: Altered mental status type: unspecified Qualified Code(s): R41.82 - Altered mental status, unspecified Code(s): R41.82 - Altered mental status, unspecified Status: Acute Plan 34 y.o male with PMH/o GERD, obesity admitted for AMS, acting bizzar. Patient reportedly ingested a gummy obtained from the street around 8:00 p.m. last night, 03/03. He typially uses gummies, denies any other drug use. head CT: IMPRESSION: 1. No acute intracranial findings. Chest xray: IMPRESSION: 1. No acute cardiopulmonary findings given portable technique. Labs: wbc 15.8, chemistry normal. Lactic acid initially elevated-2.9, normal now- 1.4. CK 388. TSH 0.145. UDS- positive for cannabinoids. UA ok otherwise. - continue IV fluids - repeat labs in am, repeat CK monitor resp status, vs - drug counselling education completed Pt a full code SCD for DVT prophylaxis Quality VTE Prophylaxis VTE prophylaxis: mechanical ordered Hospitalist MIPS Advance Care Plan I have confirmed that the patient's Advanced Care Plan is present, code status is documented, or surrogate decision maker is listed in patient medical record.: Yes Medication Reconciliation I have utilized all available resources to obtain, update and review the patients current medications (includes all prescriptions, OTC, herbals, cannabis, and nutritional supplements).: Yes
[2025-03-05 00:02] VITALS: PULSE 79
[2025-03-05] MEDS: SODIUM CHLORIDE 0.9% IV 1,000 ML 125 ML IV CONT (03:50)
[2025-03-05 04:04] VITALS: PULSE 77
[2025-03-05 06:00] VITALS: BP 136/75; PULSE 78; RESP 18; TEMP 36.5; O2SAT 98
[2025-03-05 06:20] LABS: Hematocrit 39.5 % (42.0-52.0); Hemoglobin 12.6 g/dL (14.0-18.0); Mean Corpuscular HGB Conc 31.9 g/dl (32-36); Mean Corpuscular Hemoglobin 27.8 pg (26-34); Mean Corpuscular Volume 87.0 fl (80-100); Platelet Count Result 218 k/mm3 (150-375); Red Blood Count 4.54 M/mm3 (4.6-6.20); White Blood Count 4.9 K/mm3 (4.5-10.0)
[2025-03-05 06:34] LABS: Alanine Aminotransferase 28 U/L (6-50); Albumin Level 3.5 g/dL (3.5-5.1); Alkaline Phosphatase 63 U/L (38-126); Anion Gap 7 mmol/L (4-12); Aspartate Amino Transferase 33 U/L (17-59); Bilirubin,Total 0.4 mg/dL (0.2-1.3); Blood Urea Nitrogen 10 mg/dL (9-20); Calcium 8.0 mg/dL (8.4-10.2); Carbon Dioxide 24 mmol/L (22-30); Chloride 109 mmol/L (98-107); Creatine Kinase 481 U/L (55-170); Estimated CRCL calculation 138 ml/min; Estimated Glomerular Filt Rate > 60; Glucose 89 mg/dL (65-110); Potassium 3.8 mmol/L (3.4-5.0); Sodium 140 mmol/L (137-145); Total Protein 6.5 g/dL (6.3-8.2)
[2025-03-05 08:00] VITALS: PULSE 76
--- NOTE | 2025-03-05 11:39 | P.DS_ITS ---
DS: Admitting Diagnosis Discharge Date 03/05 Admitting Diagnosis ams DS: Discharge Diagnosis Discharge Diagnosis (1) Substance abuse: Code(s): F19.10 - Other psychoactive substance abuse, uncomplicated Status: Acute (2) Obesity: Qualifiers: Obesity type: due to excess calories Obesity classification: adult class 1 (BMI 30 - 34.9) Serious obesity comorbidity presence: without serious comorbidity Body mass index: BMI 34.0-34.9 Qualified Code(s): E66.09 - Other obesity due to excess calories; Z68.34 - Body mass index [BMI] 34.0-34.9, adult Code(s): E66.9 - Obesity, unspecified Status: Acute (3) Gastroesophageal reflux disease: Qualifiers: Esophagitis presence: with esophagitis Esophagitis bleeding: without hemorrhage Qualified Code(s): K21.00 - Gastro-esophageal reflux disease with esophagitis, without bleeding Code(s): K21.9 - Gastro-esophageal reflux disease without esophagitis Status: Acute (4) Altered mental status: Qualifiers: Altered mental status type: unspecified Qualified Code(s): R41.82 - Altered mental status, unspecified Code(s): R41.82 - Altered mental status, unspecified Status: Acute DS: Summary Hospital Course Hospital Course: 34 y.o male with PMH/o GERD, obesity admitted for AMS, acting bizzar. Patient reportedly ingested a gummy obtained from the street around 8:00 p.m. last night, 03/03. He typially uses gummies, denies any other drug use. head CT: IMPRESSION: 1. No acute intracranial findings. Chest xray: IMPRESSION: 1. No acute cardiopulmonary findings given portable technique. Labs: wbc 15.8, chemistry normal. Lactic acid initially elevated-2.9, normal now- 1.4. CK 388. TSH 0.145. UDS- positive for cannabinoids. UA ok otherwise. Pt received IV fluids. Add extensive drug screen. CK is still elevated- but pt wants to go home this morning. Discussed in details- will have it rechecked and follow up with pcp within a week. Need to stay hydrated- drink water and avoid drugs all together. WBC is back to normal this am. Status at Discharge Functional status at discharge: independent ambulation Time Spent with Patient Time attestation: Total time spent providing and/or coordinating discharge services: Time spent: Greater than 30 minutes Exam Narrative: awake and alert this morning Const: General: comfortable Neck: Thyroid: thyroid normal Resp: Effort & Inspection: normal respiratory effort Auscultation: clear to auscultation bilaterally Cardio: Rate: regular rate Rhythm: regular rhythm GI: Auscultation: normal bowel sounds Skin: General skin exam: normal color Extrem: General: normal to inspection Psych: Affect: normal affect DS: Data Data Completed and Pending Labs on day of discharge: Labs from last 24 hours 03/05/25 03/04/25 05:49 04:51 WBC 4.9 RBC 4.54 L Hgb 12.6 L Hct 39.5 L MCV 87.0 MCH 27.8 MCHC 31.9 L RDW 13.2 Plt Count 218 MPV 10.9 H Sodium 140 Potassium 3.8 Chloride 109 H Carbon Dioxide 24 Anion Gap 7 BUN 10 Creatinine 0.91 Estim Creat Clear Calc 138 Estimated GFR > 60 Glucose 89 Calcium 8.0 L Total Bilirubin 0.4 AST 33 ALT 28 Alkaline Phosphatase 63 Total Creatine Kinase 481 H Total Protein 6.5 Albumin 3.5 Ur Drug Screen Interp Pending Discharge Plan Discharge Attending physician on discharge: Samantha Nieves Discharging Clinician: Kailyn Fuller Patient Disposition: Home Activity: may shower Diet: heart healthy Discharge Instructions: Please avoid all kinds of drugs. Have your blood work repeated in few days after discharge to ensure all normal and see your PCP in 1-2 weeks. If you start having any chest pain, shortness of breath, and/or any other new or concerning symptoms, please come back to ED. Patient Instructions: Antibiotic Form Patient Language: Dutch Stand Alone Forms: General Discharge Information Follow-up/Referrals: Izabella Fowler, [employer] [Primary Care Provider, Internal Medicine] - 2 Weeks Other Ambulatory Orders: Complete Blood Count no Diff (Routine) Timeframe: 1 Week Location: Determined by Patient Ordered By: Kaliyn Fuller Creatine Kinase (Routine) Timeframe: 1 Week Location: Determined by Patient Ordered By: Kailyn Fuller Comprehensive Metabolic Panel (Routine) Timeframe: 1 Week Location: Determined by Patient Ordered By: Kailyn Fuller Date of admission: 03/04/25 06:32 Primary Care Provider: Izabella Fowler Admitting Provider: Malena Bobby Attending physician on admission: Malena Bobby Condition: Improved Quality VTE Prophylaxis VTE prophylaxis: mechanical ordered Hospitalist MIPS Heart Failure (Exclusion) Patient has history of Heart Transplant or Left Ventricular Assistive Device?: No IF YES, STOP HERE Heart Failure (Qualifier) Patient has current or prior documentation of LVEF less than or equal to 40%, or mod/servere depressed LVSF?: No IF NO, STOP HERE
[2025-03-05 12:00] VITALS: PULSE 86
[2025-03-11 14:08] LABS: Summary Report (Summary) FINAL (.)
== END 2025-03-05 16:40 | disposition home or self-care (01) ==
LOC: ANHED 03-04 06:32 → ANH3MEDSUR 03-04 11:43
PROVIDERS: Nurse Practitioner; Admitting Provider Internal Medicine; Emergency Provider Student in an Organized Health Care Education/Training Program; PCP Nurse Practitioner; Visit Provider Student in an Organized Health Care Education/Training Program
DX: F19.10 Other psychoactive substance abuse, uncomplicated (principal); R41.82 Altered mental status, unspecified; R11.2 Nausea with vomiting, unspecified; K21.00 Gastro-esophageal reflux disease with esophagitis, without bleeding; Z87.891 Personal history of nicotine dependence; E66.9 Obesity, unspecified; Z68.33 Body mass index [BMI] 33.0-33.9, adult
CPT/HCPCS: 36415; 70450; 71045; 80048; 80053; 80143; 80179; 80307; 81003; 82077; 82550; 82803; 83605; 83690; 83735; 84439; 84443; 84480; 84484; 85025; 85027; 85610; 85730; 93005; 94640; 96361; 96374; 96375; 99285; G0378; J2312; J2405; J7030